=== PATIENT | male | born 1970 | race Caucasian/White ===

== ENCOUNTER → 2023-10-16 | Outpatient (CLI) | payer BC ==
--- NOTE | 2023-10-16 10:25 | PE ---
EXAMINATION TYPE: PET CT fusion skull to thigh DATE OF EXAM: 10/16/2023 COMPARISON: No pertinent prior CTs at this location. Prior PET/CT: No prior CT at this location HISTORY: Lung nodules TECHNIQUE: Following the intravenous administration of 11.83 mCi of F-18 FDG, whole body images are performed from the skull base to the midthigh. Images are reviewed on the computer in the coronal, a xial, and sagittal planes. Reconstructed rotating images are created on independent workstation and reviewed on the computer. A localization and attenuation correction CT is performed in conjunction with the PET scan. DLP: Not Recorded mGycm SCAN: Initial Blood glucose: 105 mg/dL Average Mediastinum SUV: 2.1 Average Liver SUV: 2.82 FINDINGS: NECK: Lower neck and supraclavicular punctate areas of uptake are present in the be some small lymph nodes. Example image image 65, lateral SUV 10.66 on the right and more medial 10.08. Smaller area of uptake on the left has an SUV of 6.18. Image 66 lateral left uptake 6.26. There is a focus of uptake in the right supraclavicular region, image 69, SUV 11.89. THORAX: Superior mediastinal adenopathy has increased uptake, image 80, SUV 10.37. Additional smaller lymph nodes have abnormal uptake, image 82, SUV 9.71, image 86, SUV 11.05. Subcarinal adenopathy has increased uptake measuring 12.99. Infrahilar adenopathy on the left posteriorly measures 12.05 and a nteriorly 8.70 and on the left uptake measures 7.1. Multiple foci are present within these regions bi laterally. There is a focus of radiotracer posterior to the aorta image 129, SUV 18.93. There foci of uptake within the left upper lung field. A more intense area, image 88 measures 6.86 wi th additional smaller milder areas of uptake present bilaterally. A larger focus of increased uptake is within the left upper lung field, image 92, SUV 11.79 and image 96, SUV 15.42. Some intense uptake is also present within the posterior lateral right upper lung field, image 97, SUV 12.85. ABDOMEN: Note is made of a subcutaneous focus of radiotracer in the posterior skin level just left of midline, image 151, SUV 9.5. Celiac axis uptake, image 156, has SUV of 9.41 posteriorly and 7.2 more anteriorly. Couple of smaller foci of abnormal uptake are present image 161 SUV 7.78. PELVIS: No abnormal uptake OSSEOUS STRUCTURES: There appears to be a focus of radiotracer within the posterior lateral right rib , image 121, SUV 6.73. LOCALIZATION CT: Multiple lymph nodes are evident on the localization CT corresponding to the areas o f uptake. Additionally, the lung masses correspond to abnormal uptake. COMPARISON: None IMPRESSION: 1. Abnormal uptake within bilateral lung masses compatible with neoplasm. 2. There are multiple bilateral hilar mediastinal supraclavicular, lower neck bilaterally and celiac axis lymph nodes with abnormal uptake suspicious for metastatic lesions. 3. Possible solitary osseous metastasis versus pleural involvement of a right lateral chest wall area of uptake.
== END | disposition home or self-care (01) ==
LOC: RADPETMAIN 07:15
PROVIDERS: ATTEND Internal Medicine Pulmonary Disease
DX: R59.0 Localized enlarged lymph nodes (principal); R91.8 Other nonspecific abnormal finding of lung field; M17.9 Osteoarthritis of knee, unspecified; E78.5 Hyperlipidemia, unspecified; J40 Bronchitis, not specified as acute or chronic
CPT/HCPCS: 78815; A9552